=== PATIENT | female | born 1955 | race Caucasian/White ===

== ENCOUNTER 2018-04-17 12:26 | Inpatient (IN) | payer OTHER, MEDICAID ==
[~2018-04-17] VITALS: Ht 154.9 cm; Wt 39.3 kg
[2018-04-17] VITALS (10 sets, daily range): BP systolic 100–135
[2018-04-17] MEDS ORDERED: ONDANSETRON HCL 4 MG/2 ML VIAL IVP ONE (12:45)
[2018-04-17] MEDS ORDERED: MORPHINE 4 MG/ML INJ. SYRINGE IVP ONE (12:45)
[2018-04-17] MEDS ORDERED: NS 500 ML IV ONE (12:45)
[2018-04-17 12:54] LABS: BASOPHILS % (AUTO) 0.5 % (0.0-2.0); EOSINOPHILS # (AUTO) 0.2 K/uL (0.0-0.4); EOSINOPHILS % (AUTO) 3.1 % (0.0-4.0); LYMPHOCYTES # (AUTO) 0.3 K/uL (1.0-5.5); LYMPHOCYTES % (AUTO) 5.6 % (20.5-51.5); MEAN CORPUSCULAR HEMOGLOBIN 30 pg (27-31); MEAN CORPUSCULAR HGB CONC 34 % (32-36); MEAN CORPUSCULAR VOLUME 89 fL (79.0-98.0); MONOCYTES # (AUTO) 0.4 K/uL (0.0-1.0); MONOCYTES % (AUTO) 6.5 % (1.7-9.3); NEUTROPHILS # (AUTO) 4.6 K/uL (1.8-7.7); NEUTROPHILS % (AUTO) 84.3 % (40.0-70.0); PLATELET COUNT (AUTO) 148 K/uL (130-430); RED CELL DISTRIBUTION WIDTH 14.1 % (9.0-15.0); WHITE BLOOD COUNT (AUTO) 5.5 K/uL (4.8-10.8)
[2018-04-17 13:00] LABS: RED BLOOD CELL COUNT(AUTO) 1.94 MIL/uL (4.2-6.2)
[2018-04-17] MEDS ORDERED: ONDANSETRON 4 MG ODT TAB PO ONE (13:00)
[2018-04-17] MEDS ORDERED: MORPHINE 2 MG/ML INJ. SYRINGE IM ONE (13:00)
[2018-04-17 13:02] LABS: HEMATOCRIT 17.2 % (36-48); HEMOGLOBIN 5.9 g/dL (12.0-16.0)
[2018-04-17] MEDS ORDERED: MORPHINE 4 MG/ML INJ. SYRINGE ONE (13:04)
[2018-04-17 13:06] LABS: CALCIUM 9.1 mg/dL (8.4-11.0); CREATININE 6.12 mg/dL (0.55-1.30); POTASSIUM 4.6 mmol/L (3.5-5.1)
[2018-04-17 13:11] LABS: INR 1.2 (0.8-1.2); PROTHROMBIN TIME 12.7 SECS (9.5-12.5)
[2018-04-17] MEDS ORDERED: ASPIRIN 81 MG TAB.CHEW PO ONE (14:15)
[2018-04-17] MEDS ORDERED: LORazepam 2 MG/ML VIAL (FOR ER USE) IM ONE (14:45)
[2018-04-17] MEDS ORDERED: ACET-2634 PO (14:51)
[2018-04-17] MEDS ORDERED: PREDEYE1% OP (14:51)
[2018-04-17] MEDS ORDERED: FLUT16SP16 NS (14:51)
[2018-04-17] MEDS ORDERED: FAMO20TA8 PO (14:51)
[2018-04-17] MEDS ORDERED: GLUC1VIA4 IJ (14:51)
[2018-04-17] MEDS ORDERED: IPRA3AMP9 INH (14:51)
[2018-04-17] MEDS ORDERED: LORA-258 PO (14:51)
[2018-04-17] MEDS ORDERED: INSU100I4 SQ (14:51)
[2018-04-17] MEDS ORDERED: PROXL60 PO (14:51)
[2018-04-17] MEDS ORDERED: LISI40TA4 PO (14:51)
[2018-04-17] MEDS ORDERED: HYDR-551 PO (14:51)
[2018-04-17] MEDS ORDERED: LIDOCAINE (14:56)
[2018-04-17] MEDS ORDERED: LIDOINT TP (14:56)
[2018-04-17] MEDS ORDERED: ALPRAZolam 0.25 MG TABLET PO ONE (15:00)
[2018-04-17] MEDS ORDERED: LIDOCAINE/EPI 1% 1:100000 20 ML VIAL INJ ONE (16:00)
[2018-04-17 19:02] LABS: INR 1.2 (0.8-1.2); PROTHROMBIN TIME 12.7 SECS (9.5-12.5)
[2018-04-17] MEDS: D5NS 1,000 ML IV SCH (19:03)
[2018-04-17] MEDS ORDERED: ACETAMINOPHEN 500 MG TABLET PO PRN (20:45)
[2018-04-17] MEDS ORDERED: LIDOCAINE TOPICAL OINT 5%, 35 GM TP SCH (20:45)
[2018-04-17] MEDS ORDERED: ONDANSETRON HCL 4 MG/2 ML VIAL IVP PRN (21:00)
[2018-04-17] MEDS ORDERED: FLUTICASONE PROPIONATE 50 mCg/SPRAY 16 GM NS SCH (21:00)
[2018-04-17] MEDS: ALPRAZolam 0.25 MG TABLET PO SCH (21:12)
[2018-04-17] MEDS: LISINOPRIL 20 MG TABLET PO SCH (22:00)
[2018-04-17] MEDS ORDERED: HEPARIN SODIUM,PORCINE 5000 UNITS/ML VIAL ONE (23:02)
[2018-04-18] VITALS (15 sets, daily range): BP systolic 125–147
[2018-04-18] MEDS: OXYCODONE/ACETAMINOPHEN 5-325 TABLET PO PRN ×4 (00:51→22:50)
[2018-04-18] MEDS: IPRATROPIUM/ALBUTEROL SULFATE 3 ML AMPUL.NEB (DUONEB) INH SCH ×4 (00:55→18:00)
[2018-04-18 06:00] LABS: BASOPHILS % (AUTO) 0.6 % (0.0-2.0); EOSINOPHILS # (AUTO) 0.1 K/uL (0.0-0.4); EOSINOPHILS % (AUTO) 2.5 % (0.0-4.0); HEMATOCRIT 24.3 % (36-48); HEMOGLOBIN 8.2 g/dL (12.0-16.0); LYMPHOCYTES # (AUTO) 0.2 K/uL (1.0-5.5); LYMPHOCYTES % (AUTO) 4.3 % (20.5-51.5); MEAN CORPUSCULAR HEMOGLOBIN 30 pg (27-31); MEAN CORPUSCULAR HGB CONC 34 % (32-36); MEAN CORPUSCULAR VOLUME 90 fL (79.0-98.0); MONOCYTES # (AUTO) 0.3 K/uL (0.0-1.0); MONOCYTES % (AUTO) 7.2 % (1.7-9.3); NEUTROPHILS # (AUTO) 4.2 K/uL (1.8-7.7); NEUTROPHILS % (AUTO) 85.4 % (40.0-70.0); PLATELET COUNT (AUTO) 122 K/uL (130-430); RED BLOOD CELL COUNT(AUTO) 2.71 MIL/uL (4.2-6.2); RED CELL DISTRIBUTION WIDTH 13.8 % (9.0-15.0); WHITE BLOOD COUNT (AUTO) 4.8 K/uL (4.8-10.8)
[2018-04-18 06:08] LABS: CALCIUM 8.8 mg/dL (8.4-11.0); CREATININE 3.07 mg/dL (0.55-1.30); POTASSIUM 3.6 mmol/L (3.5-5.1)
[2018-04-18] MEDS: D5NS 1,000 ML IV SCH (07:30)
[2018-04-18] MEDS: NIFEDIPINE 60 MG TABLET.SA (PROCARDIA XL 60 MG) PO SCH (08:18)
[2018-04-18] MEDS: FLUTICASONE PROPIONATE 50 mCg/SPRAY 16 GM NS SCH ×2 (08:19→20:50)
[2018-04-18] MEDS: prednisoLONE 1% OPHTHALMIC SUSPN 5 ML OP SCH (08:19)
[2018-04-18] MEDS: LISINOPRIL 20 MG TABLET PO SCH (08:37)
[2018-04-18] MEDS: ALPRAZolam 0.25 MG TABLET PO SCH ×2 (08:37→20:50)
[2018-04-18] MEDS: FAMOTIDINE 20 MG TABLET PO SCH ×2 (09:00→10:00)
[2018-04-18] MEDS ORDERED: FAMOTIDINE 20 MG TABLET PO SCH (09:00)
[2018-04-18] MEDS: LORazepam 1 MG TABLET PO PRN ×2 (09:58→17:29)
[2018-04-18] MEDS: NORMAL SALINE 5 ML DISP.SYRIN IVF SCH ×2 (14:42→21:01)
[2018-04-18] MEDS: LIDOCAINE TOPICAL OINT 5%, 35 GM TP SCH ×3 (17:29→20:49)
[2018-04-19 00:07] VITALS: BP_SYST 148
[2018-04-19] MEDS: IPRATROPIUM/ALBUTEROL SULFATE 3 ML AMPUL.NEB (DUONEB) INH SCH ×5 (01:28→23:27)
[2018-04-19] MEDS: LORazepam 1 MG TABLET PO PRN ×3 (01:46→18:05)
[2018-04-19] MEDS: OXYCODONE/ACETAMINOPHEN 5-325 TABLET PO PRN ×4 (03:53→19:01)
[2018-04-19] MEDS: NORMAL SALINE 5 ML DISP.SYRIN IVF SCH ×3 (05:21→21:35)
[2018-04-19 08:16] VITALS: BP_SYST 157
[2018-04-19] MEDS: FAMOTIDINE 20 MG TABLET PO SCH (08:45)
[2018-04-19] MEDS: NIFEDIPINE 60 MG TABLET.SA (PROCARDIA XL 60 MG) PO SCH (08:46)
[2018-04-19] MEDS: LISINOPRIL 20 MG TABLET PO SCH ×2 (08:46→09:00)
[2018-04-19] MEDS: prednisoLONE 1% OPHTHALMIC SUSPN 5 ML OP SCH (08:47)
[2018-04-19] MEDS: FLUTICASONE PROPIONATE 50 mCg/SPRAY 16 GM NS SCH ×2 (08:48→21:00)
[2018-04-19] MEDS: ALPRAZolam 0.25 MG TABLET PO SCH ×2 (09:00→21:00)
[2018-04-19 11:36] VITALS: BP_SYST 132
[2018-04-19 16:19] VITALS: BP_SYST 111
[2018-04-19 19:30] VITALS: BP_SYST 155
[2018-04-19] MEDS: MORPHINE SULFATE 15 MG TABLET.ER PO SCH (21:30)
[2018-04-20] MEDS: LORazepam 1 MG TABLET PO PRN (00:07)
[2018-04-20 00:14] VITALS: BP_SYST 154
[2018-04-20] MEDS: OXYCODONE/ACETAMINOPHEN 5-325 TABLET PO PRN ×4 (00:59→17:29)
[2018-04-20] MEDS: NORMAL SALINE 5 ML DISP.SYRIN IVF SCH ×2 (06:44→14:56)
[2018-04-20] MEDS: IPRATROPIUM/ALBUTEROL SULFATE 3 ML AMPUL.NEB (DUONEB) INH SCH ×2 (07:06→13:48)
[2018-04-20 07:19] LABS: CALCIUM 8.7 mg/dL (8.4-11.0); CREATININE 2.31 mg/dL (0.55-1.30); POTASSIUM 3.5 mmol/L (3.5-5.1)
[2018-04-20 08:19] VITALS: BP_SYST 150
[2018-04-20] MEDS: ALPRAZolam 0.25 MG TABLET PO SCH ×2 (09:00→09:11)
[2018-04-20] MEDS: MORPHINE SULFATE 15 MG TABLET.ER PO SCH (09:00)
[2018-04-20] MEDS: LISINOPRIL 20 MG TABLET PO SCH ×2 (09:00→09:12)
[2018-04-20] MEDS: FAMOTIDINE 20 MG TABLET PO SCH (09:12)
[2018-04-20] MEDS: NIFEDIPINE 60 MG TABLET.SA (PROCARDIA XL 60 MG) PO SCH (09:12)
[2018-04-20] MEDS: FLUTICASONE PROPIONATE 50 mCg/SPRAY 16 GM NS SCH (09:14)
[2018-04-20] MEDS: prednisoLONE 1% OPHTHALMIC SUSPN 5 ML OP SCH (09:14)
[2018-04-20 12:03] VITALS: BP_SYST 157
[2018-04-20 16:00] VITALS: BP_SYST 169
[2018-04-20 17:18] VITALS: BP_SYST 157
[2018-04-20 17:35] VITALS: BP_SYST 138
== END 2018-04-20 19:10 | DRG 314 ==
LOC: SED 12:26 → SIC 14:12 → SMU 04-18 11:15
PROVIDERS: ADMIT Family Medicine; ATTEND Family Medicine
PROC: 5A1D70Z Performance of Urinary Filtration, Intermittent, Less than 6 Hours Per Day (ICD-10-PCS; principal; 2018-04-17)
PROC: 30233N1 Transfusion of Nonautologous Red Blood Cells into Peripheral Vein, Percutaneous Approach (ICD-10-PCS; 2018-04-17)
PROC: 5A1D70Z Performance of Urinary Filtration, Intermittent, Less than 6 Hours Per Day (ICD-10-PCS; 2018-04-19)
DX: I95.9 Hypotension, unspecified (principal); N18.6 End stage renal disease; C79.00 Secondary malignant neoplasm of unspecified kidney and renal pelvis; I12.0 Hypertensive chronic kidney disease with stage 5 chronic kidney disease or end stage renal disease; D63.0 Anemia in neoplastic disease; G89.4 Chronic pain syndrome; M19.90 Unspecified osteoarthritis, unspecified site; H54.8 Legal blindness, as defined in USA; H66.91 Otitis media, unspecified, right ear; D63.1 Anemia in chronic kidney disease; J44.9 Chronic obstructive pulmonary disease, unspecified; Z99.2 Dependence on renal dialysis; Z88.0 Allergy status to penicillin; Z87.891 Personal history of nicotine dependence; Z90.49 Acquired absence of other specified parts of digestive tract; Z88.8 Allergy status to other drugs, medicaments and biological substances; Z79.899 Other long term (current) drug therapy; Z79.52 Long term (current) use of systemic steroids
CPT/HCPCS: 36415; 71045; 80048; 82550-TC; 84484; 85025; 85610-TC; 85730-TC; 86886; 86900; 86901; 86920; 87081; 90935; 90937; 93005; 94640; 94760; 96372; 99285; J1644; J2060; J2270; J7030; J7040; J7042; J7620; P9021; Q0162

== ENCOUNTER 2018-04-24 02:55 | Emergency (ER) | payer OTHER, MEDICAID ==
[~2018-04-24] VITALS: Ht 149.9 cm; Wt 44.5 kg
[~2018-04-24 02:55] MED LIST: ACET-2634 PO; FAMO20TA8 PO; FLUT16SP16 NS; GLUC1VIA4 IJ; IPRA3AMP9 INH; LIDOINT TP; LISI40TA4 PO; LORA-258 PO; PREDEYE1% OP; PROXL60 PO
[2018-04-24] MEDS ORDERED: MORPHINE 4 MG/ML INJ. SYRINGE IM ONE (03:15)
[2018-04-24 03:24] VITALS: BP_SYST 138
[2018-04-24 04:52] VITALS: BP_SYST 135
== END 2018-04-24 04:52 | disposition home or self-care (01) ==
LOC: SED 02:55
DX: M79.651 Pain in right thigh (principal); Z88.0 Allergy status to penicillin; Z88.8 Allergy status to other drugs, medicaments and biological substances; Z79.899 Other long term (current) drug therapy
CPT/HCPCS: 96372; 99283; J2270